=== PATIENT | female | born 1960 | race Caucasian/White ===

== ENCOUNTER 2024-02-04 13:18 | Outpatient (AMB) | payer MEDICARE, MEDICAID, SELFPAY ==
[2024-02-04 13:19] VITALS: BP 150/118; PULSE 86; O2SAT 97; BMI 23.5
--- NOTE | 2024-02-04 13:19 | HO.NEPHOV ---
Vital Signs 02/04/24 13:19 Height 5 ft 5 in Weight 141 lb BMI 23.5 BP 150/118 H Blood Pressure Location Lt brachial Position Sitting Pulse 86 Pulse Source Pulse Oximeter Pulse Oximetry (%) 97 Oxygen Delivery Method Room Air Intake Visit Reasons: Hyponatremia and Hypokalemia Occ Therapist Required: No Accompanied by: Self / Same As Patient Allergies codeine Allergy (Unknown, Verified 02/04/24 13:24) Unknown lisinopril Allergy (Unknown, Verified 02/04/24 13:24) Unknown Medication List - Last Reconciled 02/04/24 by Yash Jung MD atorvastatin 40 mg PO DAILY cetirizine 10 mg PO DAILY fluticasone propionate 50 mcg/actuation sprays intranasal irbesartan 150 mg PO DAILY labetalol 200 mg PO DAILY pantoprazole 20 mg PO DAILY HPI Comments Details: Amarilis is a pleasant 63 yr old woman with fibromyalgia and IBS along with chronic alcohol use referred for electrolyte imbalance - Hypokalemia/ Hyponatremia/ Hypomagnesemia / Hypocalcemia Omeprazole has been switched to pantaprozole and MgO ahs been added She consumes 4- 6 drinks a day Also drinks seltzer -6 cans a day [facility] Social History (Updated 02/04/24 @ 13:22 by SOCORRO Nina) Alcohol intake: current Patient Tobacco Use Status: Never used Tobacco Review of Systems Const Denies fever(s) and Denies weight loss Card Denies chest pain Resp Denies cough and Denies hemoptysis GI Denies abdominal pain, Denies diarrhea and Denies nausea Musc Denies back pain Neuro Denies focal weakness Physical Exam Vital Signs: Last Vital Signs Pulse 86 02/04/24 13:19 BP 150/118 H 02/04/24 13:19 Pulse Ox 97 02/04/24 13:19 Oxygen Delivery Method Room Air 02/04/24 13:19 BMI result Body Mass Index 23.5 Const General: comfortable; No acute distress Orientation/consciousness: patient oriented x3 Eyes General: appearance normal, both eyes and all related structures Visual [place]: normal visual costa by confrontation Neck Neck: Yes supple and Yes no JVD Resp Effort & Inspection: normal respiratory effort and respiratory effort not decreased Auscultation: rhonchi Cardio Palpation: no palpable S3 and no palpable S4 Heart sounds: no rubs GI Inspection: Yes normal to inspection Palpation (GI): Soft to palpation Percussion: Yes normal to percussion Auscultation: normal bowel sounds General: Yes no CVA tenderness Back/Spine/Pelvis Back: no CVA tenderness Skin General skin exam: no petechiae and no purpura Neuro General: patient oriented x3 and no focal motor deficits Extrem General: No clubbing and No edema Results Reviewed Nephrology Results: No Data to Display Assessment & Plan Assessment & Plan (1) Hypokalemia: Code(s): E87.6 - Hypokalemia Category: Medical Plan Most of the electrolyte imbalance is secondary to alcohol intake Replace K orally- repeat levels ordered Shall check Aldosterone Hypomag: due to both alcohol and PPI Off PPI now REplace Mg Orally Hyponatremia due to decrease free water clearance Limit hypotonic fluid intake Cut back on [place] and alcohol Hypocalcemia Check iPTH and Vit D 3 levels Orders: Orders Magnesium Today E87.6 - Hypokalemia Parathyroid Hormone Intact Today E87.6 - Hypokalemia Phosphorus Today E87.6 - Hypokalemia Comprehensive Met. Panel Today E87.6 - Hypokalemia Renin Today E87.6 - Hypokalemia Aldosterone Today E87.6 - Hypokalemia Coding Level of Care Code New Pt Level 4 (31514) Diagnoses Hypokalemia E87.6
== END 2024-02-04 13:43 | disposition home or self-care (01) ==
PROVIDERS: PCP Internal Medicine; Referring Provider Internal Medicine; Visit Provider Internal Medicine Hypertension Specialist
DX: E87.6 Hypokalemia (principal)
CPT/HCPCS: 99204

== ENCOUNTER → 2024-02-04 13:18 | Outpatient (BNVA) | payer MEDICARE, MEDICAID, SELFPAY | PROVIDERS: PCP Internal Medicine; Referring Provider Internal Medicine; Visit Provider Internal Medicine Hypertension Specialist | DX: E87.1 Hypo-osmolality and hyponatremia (principal); E87.6 Hypokalemia | CPT/HCPCS: 99202 ==

== ENCOUNTER → 2024-04-05 11:21 | Outpatient (BNVA) | payer MEDICARE, MEDICAID, SELFPAY | PROVIDERS: PCP Internal Medicine; Visit Provider Internal Medicine Hypertension Specialist ==